=== PATIENT | female | born 1995 | race Two or more races ===

== ENCOUNTER 2021-11-19 14:48 | Day surgery (SDC) | payer OTHER ==
[~2021-11-19] VITALS: Ht 162.6 cm; Wt 59.0 kg
[2021-11-19] MEDS ORDERED: MORGIDOX100 MG PO (16:31)
[2021-11-19] MEDS ORDERED: IBU600 MG PO (16:31)
== END 2021-11-19 19:40 | disposition home or self-care (01) ==
LOC: ER 14:48 → SEC-K 14:48 → O/R 14:48 → CIR.AMB 14:48 → SEC-K 15:02 → O/R 15:02 → EDSTATUS 15:30 → O/R 19:40 → CIR.AMB 19:40
PROVIDERS: ATTEND Emergency Medicine
DX: O03.4 Incomplete spontaneous abortion without complication (principal); Z88.8 Allergy status to other drugs, medicaments and biological substances; E06.3 Autoimmune thyroiditis